=== PATIENT | male | born 1960 | race Caucasian/White ===

== ENCOUNTER 2021-06-22 06:46 | Outpatient (CLI) | payer OTHER, SELFPAY ==
[2021-06-22 07:10] VITALS: BP 121/86; PULSE 94; RESP 18; TEMP 36.8; O2SAT 97; BMI 24.4
[2021-06-22 08:36] VITALS: BP 121/78; PULSE 94; RESP 18; TEMP 36.8; O2SAT 97
== END 2021-06-22 06:47 | disposition home or self-care (01) ==
PROVIDERS: PCP Nurse Practitioner Family; Visit Provider Family Medicine
DX: U07.1 COVID-19 (principal)
CPT/HCPCS: 96365